=== PATIENT | female | born 2005 | race Caucasian/White ===

== ENCOUNTER 2025-08-10 11:43 | Emergency (ER) | payer OTHER, SELFPAY ==
--- OUTSIDE RECORDS SUMMARY | 2025-08-10 06:12 | XMS RPT_ITS ---
Author Name Auto Generated Organization OH[facility] Care Team Providers Care Bowling Alley Refinisher Name Role Phone SITA MALDONADO Attending Physician Unavail able PROBLEMS DATE TYPE CONDITION / CODE ATTENDING STATUS TOM [facility] 08/10/2025 Active Abdominal pain, right lower quadrant / R10.31(ICD-10) SITA MALDONADO Active [facility] 08/10/2025 Active Irritable bowel syndrome, unspecified type / K58.9(ICD-10) SITA MALDONADO Active [facility] RESULTS PROGRESS Observed: 08/10/2025 11:35 AM Status: COMPLETED Source: [facility] [place] HNO ID: [id number] Author: SITA MALDONADO APRN.BRINE PURIFIER Service: ? Author Type: Nurse Practitioner Type: Progress Notes Filed: 08/10/2025 11:40 Note Text: [facility] Subjective Laly Manzanares is a 20 year old female. Patient presents with: Abdominal Pain: RLQ and RUQ x 1 week aching consistent at times sharp Abdominal Pain The patient is a 20-year-old female with a history of IBS, presenting with right lower quadrant abdominal pain. Right Lower Quadrant Abdominal Pain: - Onset: Approximately one week ago. - Location: Primarily in the RLQ, with some pain around the umbilicus. - Quality: Described as a dull, constant pain with intermittent sharp episodes every few hours. - Denies dysuria, urinary frequency, fever, or chills. - No history of appendectomy. IBS: - Chronic condition with baseline nausea and variable bowel habits. - Denies current exacerbation of usual IBS symptoms, such as increased diarrhea or constipation. - Notes that the current pain is atypical for her usual IBS-related discomfort. LMP was in June, denies being sexually active, has upcoming appointment with OBGYN due to irregular menses. Review of Systems Gastrointestinal: Positive for abdominal pain. Constitutional: (-) fever Gastrointestinal: (+) right lower quadrant abdominal pain, (+) nausea, (-) vomiting, (-) abdominal tenderness Genitourinary: (-) dysuria, (-) urinary frequency Objective BP 121/83 Pulse 77 Temp 36.7 ?C (98 ?F) Resp 20 Wt 61 kg (134 lb 7.7 oz) LMP 05/09/2025 (Approximate) SpO2 99% No past medical history on file. No past surgical history on file. ALLERGIES Patient has no known allergies. MEDICATIONS nortriptyline (PAMELOR) 10 mg capsule Take 20 mg by mouth daily at bedtime. dicyclomine (BENTYL) 10 mg capsule Take 10 mg by mouth as needed (IBS). No family history on file. Social History[1] Physical Exam Vitals and nursing note reviewed. Constitutional: General: She is not in acute distress. Appearance: Normal appearance. She is not ill-appearing. Cardiovascular: Rate and Rhythm: Normal rate and regular rhythm. Heart sounds: Normal heart sounds. Pulmonary: Effort: Pulmonary effort is normal. No respiratory distress. Breath sounds: Normal breath sounds. No wheezing or rales. Abdominal: General: Bowel sounds are normal. There is no distension. Palpations: Abdomen is soft. There is no mass. Tenderness: There is no abdominal tenderness. There is no guarding. Negative signs include McBurney's sign and psoas sign. Skin: General: Skin is warm and dry. Neurological: Mental Status: She is alert. { 1. Abdominal pain, right lower quadrant (R10.31) 2. Irritable bowel syndrome, unspecified type (K58.9) - Ongoing RLQ pain for one week, described as dull and constant with intermittent sharp episodes; no fever, dysuria, or urinary frequency; pain location atypical for patient's usual IBS symptoms. - Physical exam: No significant tenderness on palpation, no pain with hip flexion or heel tap. - Appendicitis remains a concern; unable to rule out in urgent care setting without imaging. - Advised patient to go to the emergency room for further evaluation and imaging (ultrasound or CT scan) to rule out appendicitis. - Educated on risks of delayed diagnosis, including potential for appendix rupture and severe illness; explained that appendicitis can present with mild, intermittent pain before worsening. - Encouraged to seek prompt evaluation in the ER to ensure timely diagnosis and management. - If appendicitis is ruled out and pain persists, advised follow-up with gastroenterology for further evaluation and management of IBS. - Follow-up with your PCP in 3-5 days if symptoms have not improved or sooner if symptoms worsen - Discussed red flags and need for immediate medical evaluation if any occur. - Discussed supportive care treatment with fluids, rest and analgesia. - Discussed expected course of illness Sita Maldonado APRN.BRINE PURIFIER and Recording using [employer] software for draft documentation of the visit was discussed with the patient/authorized branch service representative; all questions welcomed and answered. Patient/authorized branch service representative agreed to proceed Disposition The patient was transferred to ED. Transferred to via private auto due to RLQ pain. Procedures [1] Social History Tobacco Use Smoking status: Never Smokeless tobacco: Never CNOV Observed: 08/10/2025 11:15 AM Status: COMPLETED Source: [facility] Office Visit ([facility]) LALY WILSON ([id number]) 3 F Date Time Provider Department 08/10/25 11:15 AM SITA MALDONADO During your visit today, we recorded the following information about you: Temperature Pulse Respiration Blood pressure 98 degrees 77/minute 20/minute 121/83 Weight Last Period 61 kg 05/09/25 Sita Maldonado APRN.BRINE PURIFIER 08/10/2025 11:40 AM Addendum [facility] Subjective Laly Manzanares is a 20 year old female. Patient presents with: Abdominal Pain: RLQ and RUQ x 1 week aching consistent at times sharp Abdominal Pain The patient is a 20-year-old female with a history of IBS, presenting with right lower quadrant abdominal pain. Right Lower Quadrant Abdominal Pain: - Onset: Approximately one week ago. - Location: Primarily in the RLQ, with some pain around the umbilicus. - Quality: Described as a dull, constant pain with intermittent sharp episodes every few hours. - Denies dysuria, urinary frequency, fever, or chills. - No history of appendectomy. IBS: - Chronic condition with baseline nausea and variable bowel habits. - Denies current exacerbation of usual IBS symptoms, such as increased diarrhea or constipation. - Notes that the current pain is atypical for her usual IBS-related discomfort. LMP was in June, denies being sexually active, has upcoming appointment with OBGYN due to irregular menses. Review of Systems Gastrointestinal: Positive for abdominal pain. Constitutional: (-) fever Gastrointestinal: (+) right lower quadrant abdominal pain, (+) nausea, (-) vomiting, (-) abdominal tenderness Genitourinary: (-) dysuria, (-) urinary frequency Objective BP 121/83 Pulse 77 Temp 36.7 ?C (98 ?F) Resp 20 Wt 61 kg (134 lb 7.7 oz) LMP 05/09/2025 (Approximate) SpO2 99% No past medical history on file. No past surgical history on file. ALLERGIES Patient has no known allergies. MEDICATIONS nortriptyline (PAMELOR) 10 mg capsule Take 20 mg by mouth daily at bedtime. dicyclomine (BENTYL) 10 mg capsule Take 10 mg by mouth as needed (IBS). No family history on file. Social History[1] Physical Exam Vitals and nursing note reviewed. Constitutional: General: She is not in acute distress. Appearance: Normal appearance. She is not ill-appearing. Cardiovascular: Rate and Rhythm: Normal rate and regular rhythm. Heart sounds: Normal heart sounds. Pulmonary: Effort: Pulmonary effort is normal. No respiratory distress. Breath sounds: Normal breath sounds. No wheezing or rales. Abdominal: General: Bowel sounds are normal. There is no distension. Palpations: Abdomen is soft. There is no mass. Tenderness: There is no abdominal tenderness. There is no guarding. Negative signs include McBurney's sign and psoas sign. Skin: General: Skin is warm and dry. Neurological: Mental Status: She is alert. { 1. Abdominal pain, right lower quadrant (R10.31) 2. Irritable bowel syndrome, unspecified type (K58.9) - Ongoing RLQ pain for one week, described as dull and constant with intermittent sharp episodes; no fever, dysuria, or urinary frequency; pain location atypical for patient's usual IBS symptoms. - Physical exam: No significant tenderness on palpation, no pain with hip flexion or heel tap. - Appendicitis remains a concern; unable to rule out in urgent care setting without imaging. - Advised patient to go to the emergency room for further evaluation and imaging (ultrasound or CT scan) to rule out appendicitis. - Educated on risks of delayed diagnosis, including potential for appendix rupture and severe illness; explained that appendicitis can present with mild, intermittent pain before worsening. - Encouraged to seek prompt evaluation in the ER to ensure timely diagnosis and management. - If appendicitis is ruled out and pain persists, advised follow-up with gastroenterology for further evaluation and management of IBS. - Follow-up with your PCP in 3-5 days if symptoms have not improved or sooner if symptoms worsen - Discussed red flags and need for immediate medical evaluation if any occur. - Discussed supportive care treatment with fluids, rest and analgesia. - Discussed expected course of illness Sita Maldonado APRN.BRINE PURIFIER and Recording using [employer] software for draft documentation of the visit was discussed with the patient/authorized branch service representative; all questions welcomed and answered. Patient/authorized branch service representative agreed to proceed Disposition The patient was transferred to ED. Transferred to via private auto due to RLQ pain. Procedures [1] Social History Tobacco Use Smoking status: Never Smokeless tobacco: Never Sita Maldonado APRN.BRINE PURIFIER 08/10/2025 11:39 AM Signed 1. Abdominal pain, right lower quadrant (R10.31) 2. Irritable bowel syndrome, unspecified type (K58.9) - Ongoing RLQ pain for one week, described as dull and constant with intermittent sharp episodes; no fever, dysuria, or urinary frequency; pain location atypical for patient's usual IBS symptoms. - Physical exam: No significant tenderness on palpation, no pain with hip flexion or heel tap. - Appendicitis remains a concern; unable to rule out in urgent care setting without imaging. - Advised patient to go to the emergency room for further evaluation and imaging (ultrasound or CT scan) to rule out appendicitis. - Educated on risks of delayed diagnosis, including potential for appendix rupture and severe illness; explained that appendicitis can present with mild, intermittent pain before worsening. - Encouraged to seek prompt evaluation in the ER to ensure timely diagnosis and management. - If appendicitis is ruled out and pain persists, advised follow-up with gastroenterology for further evaluation and management of IBS. - Go to the emergency department today to have an ultrasound or CT scan to rule out appendicitis. - Watch for fever, chills, increasing or sharp pain, persistent nausea or vomiting; if any of these occur, return to the emergency department or seek urgent care immediately. - If imaging shows no appendicitis but your pain persists, schedule a gastroenterology appointment here to discuss further IBS management. Allergies As of Date: 08/10/2025 (No Known Allergies) Date Reviewed: 08/10/2025 Reviewed by: Migdalia Lockwood LPN - Fully Assessed Reason for Visit: Abdominal Pain [1] Cmt: RLQ and RUQ x 1 week aching consistent at times sharp Visit Diagnoses:Abdominal pain, right lower quadrant [R10.31] Irritable bowel syndrome, unspecified type [K58.9] Prescriptions as of 08/10/2025 - nortriptyline (PAMELOR) 10 mg capsule Take 20 mg by mouth daily at bedtime. - dicyclomine (BENTYL) 10 mg capsule Take 10 mg by mouth as needed (IBS). Problem List As Of Date 08/10/2025 Noted Resolved Abdominal pain, periumbilical [R10.33] 04/07/2014 Irritable bowel syndrome with diarrhea [K58.0] 09/27/2021 Other instructions from your clinician: 1. Abdominal pain, right lower quadrant (R10.31) 2. Irritable bowel syndrome, unspecified type (K58.9) - Ongoing RLQ pain for one week, described as dull and constant with intermittent sharp episodes; no fever, dysuria, or urinary frequency; pain location atypical for patient's usual IBS symptoms. - Physical exam: No significant tenderness on palpation, no pain with hip flexion or heel tap. - Appendicitis remains a concern; unable to rule out in urgent care setting without imaging. - Advised patient to go to the emergency room for further evaluation and imaging (ultrasound or CT scan) to rule out appendicitis. - Educated on risks of delayed diagnosis, including potential for appendix rupture and severe illness; explained that appendicitis can present with mild, intermittent pain before worsening. - Encouraged to seek prompt evaluation in the ER to ensure timely diagnosis and management. - If appendicitis is ruled out and pain persists, advised follow-up with gastroenterology for further evaluation and management of IBS. - Go to the emergency department today to have an ultrasound or CT scan to rule out appendicitis. - Watch for fever, chills, increasing or sharp pain, persistent nausea or vomiting; if any of these occur, return to the emergency department or seek urgent care immediately. - If imaging shows no appendicitis but your pain persists, schedule a gastroenterology appointment here to discuss further IBS management. Disposition: Return if symptoms worsen or fail to improve. Follow-up and Disposition History for Encounter Date Provider Department Center 08/10/2025 [id number] MALDONADO [facility] Encounter Status:Closed by SITA MALDONADO on 08/10/25 ALLERGIES DATE TYPE / CODE NAME / CODE REACTION SEVERITY SOURCE Drug Class/[id number](SNO MED CT) NO KNOWN ALLERGIES [facility] ENCOUNTERS ADMIT/DISCHARGE ACCOUNT NUMBER ADMITTING ENCOUNTER CLASS LOC ATION SOURCE 08/10/2025/ 5 [id number] [facility] PAYERS ENCOUNTER GUARANTOR PAYER SUBSCRIBER SOURCE 08/10/2025 Primary Insuranc e:[facility] COREPolicy Number: [id number] Date:[id number] Name:Antonette MATOSB: [id number] [place] [address] [facility]
[2025-08-10 11:45] VITALS: BP 113/76; PULSE 90; RESP 18; TEMP 37.1; O2SAT 99; BMI 21.2
--- NOTE | 2025-08-10 12:17 | CT_ITS ---
PROCEDURE: ABDOMEN/PELVIS WITH CONTRAST 08/10/2025 REASON FOR EXAM: RLQ PAIN TECHNIQUE: Procedure Code: [id number] Modality: CT Procedure: ABDOMEN/PELVIS WITH CONTRAST Coronal and Sagittal reconstruction series were provided. CONTRAST: Amount of contrast not specified One or more dose reduction techniques were used (e.g., Automated exposure control, adjustment of the mA and/or kV according to patient size, use of iterative reconstruction technique. RADIATION DOSE SUMMARY: CTDlvol: 19 mGy DLP: 335 mGycm FINDINGS: Normal lumbar alignment. Normal vertebral body height. No subluxation. No compression deformity. The stomach is distended with fluid and/or food. Normal appearance of the gallbladder and spleen. Normal appearance of the adrenal glands and kidneys. GI contrast was administered and there is no bowel obstruction. There is no free-fluid or free air. There is no abscess. No colonic diverticulitis or wall thickening. No appendicitis. CT/Abdomen/Pelvis WITH Contrast IMPRESSION: No acute abnormality. Specific attention to the right lower quadrant Reading Location[facility]
--- NOTE | 2025-08-10 12:27 | EX.ED.DYSGE1 ---
HPI History of Present Illness Chief Complaint: Abd Pain Informant: patient Narrative Narrative: 20-year-old female presenting to the emergency room with the chief complaint of right lower quadrant pain. Patient states for the past 7 days she has had pain that started around her bellybutton is moved to the right lower quadrant. She states that urgent care advised her to come to emergency to rule out appendicitis. She denies any fevers. No anorexia vomiting or change in stooling. She does have a history of IBS but states that her stool pattern is consistent and not changed. She denies any rash. She denies any urinary symptoms. She ate eggs at around 0800 hrs. this morning. She does feel that there is a component that radiates slightly towards the flank. [facility] Medical History IBS (irritable bowel syndrome) Allergy/AdvReac Type Severity Reaction Status Date / Time No Known Allergies Allergy Verified 08/10/25 11:54 Social History Smoking Status: Never smoker ROS ROS ED Constitutional Constitutional ED: Denies chills, fever(s) or weight loss Eyes Eyes: Denies change in vision or diplopia ENT ENT ED: Denies ear pain, rhinorrhea or sore throat Cardiovascular Cardiovascular: Denies chest pain, orthopnea, palpitations or racing heartbeat Respiratory/Chest Respiratory/Chest: Denies cough, dyspnea or orthopnea Gastrointestinal Gastrointestinal: Reports abdominal pain and diarrhea; Denies nausea or vomiting Genitourinary Genitourinary ED: Denies dysuria, hematuria or urinary frequency Musculoskeletal Musculoskeletal: Denies arthralgias or myalgias Integumentary Denies abscess or rash Neurologic Neurologic: Denies headache(s) or weakness Psychiatric Psychiatric: Denies anxiety, depression, suicidal ideation or suicidal thoughts Endocrine Endocrinology: Denies polydipsia, polyphagia or polyuria Allergic/Immunologic Allergic/Immunologic ED: Denies mouth swelling, tongue swelling or urticaria EXAM Physical Exam Const Vital Signs: 08/10/25 11:45 08/10/25 13:44 08/10/25 15:00 Temperature 98.8 F Temperature Source Oral Pulse Rate 90 69 Respiratory Rate 18 18 19 H Blood Pressure 113/76 108/80 Blood Pressure Mean 88 89 Pulse Ox 99 99 97 Oxygen Delivery Method Room Air Room Air Room Air 08/10/25 15:01 Temperature 98.8 F Temperature Source Pulse Rate 69 Respiratory Rate 19 H Blood Pressure 108/80 Blood Pressure Mean 89 Pulse Ox 97 Oxygen Delivery Method Positive well nourished and well developed General Appearance ED: well developed HEENT Reports normocephalic, head/scalp atraumatic and moist mucous membranes Eyes PERRL and EOMs intact bilaterally Neck no lymphadenopathy, supple and no JVD Resp normal respiratory effort and clear to auscultation bilaterally Cardio regular rate, regular rhythm and no murmurs GI non-distended and no masses; Negative for hepatosplenomegaly GI Narrative: The abdomen is soft and I would characterize it as nonsurgical. There is normal active bowel sounds. Mild tenderness in the right lower quadrant without guarding or rebound Auscultation: normoactive bowel sounds Palpation: soft and tender RLQ; Negative for guarding or rebound tenderness present Back/Spine no CVA tenderness and normal ROM Extremity normal to inspection General Extremety ED: Negative for edema General Extremity: Negative for edema Neuro oriented x3 and CN's II-XII intact bilaterally Sensorium / Orientation: alert Motor Exam: strength 5/5 throughout Psych mental status grossly normal Mood & Affect: Negative for depressed or tearful Skin no rashes or lesions noted and no wounds MDM MDM MDM Narrative Medical decision making narrative: Differential diagnosis includes but not limited to appendicitis epiploic appendagitis mesenteric adenitis ovarian cyst UTI kidney stone colitis Patient's white count is 6 with no left shift. Stable hemoglobin 14.9. BMP within normal limits. Liver enzymes within normal limits test is negative urinalysis is negative. CT then pelvis with oral and IV contrast was obtained. I do not see any evidence of appendicitis. Please see radiologist read. At this point I think the patient can be discharged home. I do see an abundance of stool in the right side of the colon. Given the patient's IBS I am hesitant to say drink magnesium citrate may exacerbate some diarrhea but this may also help the patient move the stool through. If she notes continued symptoms or worsening symptoms especially the next 2448 hrs. she should return for repeat examination History & Record Review Discussion w/independent historian: Patient Lab Data Attestation: I reviewed the patient's lab results. Labs: Laboratory Results - last 24 hr 08/10/25 08/10/25 08/10/25 13:04 13:04 13:20 WBC Cancelled 6.0 Corrected WBC Cancelled RBC Cancelled 4.70 Hgb Cancelled 14.9 Hct Cancelled 42.9 MCV Cancelled 91.3 MCH Cancelled 31.7 MCHC Cancelled 34.7 RDW Std Deviation Cancelled 40.5 RDW Coeff of Darline Cancelled 12.1 Plt Count Cancelled 227 MPV Cancelled 9.0 Immature Gran % (Auto) Cancelled 0.300 Neut % (Auto) Cancelled 70.0 Lymph % (Auto) Cancelled 18.3 L [place] % (Auto) Cancelled 7.6 Eos % (Auto) Cancelled 3.0 Baso % (Auto) Cancelled 0.8 Absolute Neuts (auto) Cancelled 4.2 Absolute Lymphs (auto) Cancelled 1.09 Total Counted Cancelled Neutrophils % (Manual) Cancelled Band Neutrophils % Cancelled Lymphocytes % (Manual) Cancelled Monocytes % (Manual) Cancelled Eosinophils % (Manual) Cancelled Basophils % (Manual) Cancelled Metamyelocytes % Cancelled Myelocytes % Cancelled Promyelocytes % Cancelled Blast Cells % Cancelled Plasma Cell % (Manual) Cancelled Other Cells % Cancelled Nucleated RBC % Cancelled 0 Nucleated RBCs/100 WBC Cancelled Differential Comment Cancelled Diff Path Review Cancelled Hypersegmented Neuts Cancelled Atypical Lymphocytes Cancelled Reactive Lymphocytes Cancelled Smudge Cells Cancelled Toxic Granulation Cancelled Toxic Vacuolation Cancelled Dohle Bodies Cancelled Raul Rods Cancelled Platelet Estimate Cancelled Plt Morphology Comment Cancelled RBC Morphology Cancelled Cancelled Polychromasia Cancelled Hypochromasia Cancelled Basophilic Stippling Cancelled Anisocytosis Cancelled Microcytosis Cancelled Macrocytosis Cancelled Spherocytes Cancelled Sickle Cells Cancelled Target Cells Cancelled Tear Drop Cells Cancelled Ovalocytes Cancelled Stomatocytes Cancelled [place] Bodies Cancelled [place] Cells Cancelled Bite Cells Cancelled Crenated Cell Cancelled Acanthocytes (Spur) Cancelled Rouleaux Cancelled Schistocytes Cancelled Sodium Cancelled 140 Potassium Cancelled 3.5 Chloride Cancelled 101 Carbon Dioxide Cancelled 27.1 Anion Gap Cancelled 12 BUN Cancelled 9 Creatinine Cancelled 0.68 L Estim Creat Clear Calc Cancelled 131.20 Est GFR (MDRD) Non-Af Cancelled 127 BUN/Creatinine Ratio Cancelled 13.3 Glucose Cancelled 98 Calcium Cancelled 9.5 Total Bilirubin Cancelled 0.60 AST Cancelled 27 ALT Cancelled 27 Alkaline Phosphatase Cancelled 71 Total Protein Cancelled 7.7 Albumin Cancelled 4.6 Globulin Cancelled 3.1 Albumin/Globulin Ratio Cancelled 1.5 Serum , Qual Cancelled NEGATIVE Urine Color Urine Clarity Urine pH Ur Specific [place] Urine Protein Urine Glucose (UA) Urine Ketones Urine Occult Blood Urine Nitrite Urine Bilirubin Urine Urobilinogen Ur Leukocyte Esterase Urine RBC Urine WBC Ur Squamous Epith Cells Urine Bacteria Urine Mucus 08/10/25 13:30 WBC Corrected WBC RBC Hgb Hct MCV MCH MCHC RDW Std Deviation RDW Coeff of Darline Plt Count MPV Immature Gran % (Auto) Neut % (Auto) Lymph % (Auto) [place] % (Auto) Eos % (Auto) Baso % (Auto) Absolute Neuts (auto) Absolute Lymphs (auto) Total Counted Neutrophils % (Manual) Band Neutrophils % Lymphocytes % (Manual) Monocytes % (Manual) Eosinophils % (Manual) Basophils % (Manual) Metamyelocytes % Myelocytes % Promyelocytes % Blast Cells % Plasma Cell % (Manual) Other Cells % Nucleated RBC % Nucleated RBCs/100 WBC Differential Comment Diff Path Review Hypersegmented Neuts Atypical Lymphocytes Reactive Lymphocytes Smudge Cells Toxic Granulation Toxic Vacuolation Dohle Bodies Raul Rods Platelet Estimate Plt Morphology Comment RBC Morphology Polychromasia Hypochromasia Basophilic Stippling Anisocytosis Microcytosis Macrocytosis Spherocytes Sickle Cells Target Cells Tear Drop Cells Ovalocytes Stomatocytes [place] Bodies [place] Cells Bite Cells Crenated Cell Acanthocytes (Spur) Rouleaux Schistocytes Sodium Potassium Chloride Carbon Dioxide Anion Gap BUN Creatinine Estim Creat Clear Calc Est GFR (MDRD) Non-Af BUN/Creatinine Ratio Glucose Calcium Total Bilirubin AST ALT Alkaline Phosphatase Total Protein Albumin Globulin Albumin/Globulin Ratio Serum , Qual Urine Color Yellow Urine Clarity Sl. Cloudy Urine pH 7.0 Ur Specific [place] 1.010 Urine Protein Negative Urine Glucose (UA) Normal Urine Ketones Negative Urine Occult Blood Negative Urine Nitrite Negative Urine Bilirubin Negative Urine Urobilinogen Normal Ur Leukocyte Esterase Negative Urine RBC 0 SEEN Urine WBC 0 SEEN Ur Squamous Epith Cells 0-5 SEEN Urine Bacteria 0 SEEN Urine Mucus 0 SEEN Radiography Diagnostic Testing: Clinical Impression(s) from Imaging Studies Abdomen/Pelvis CT 08/10/25 12:17 IMPRESSION: No acute abnormality. Specific attention to the right lower quadrant Reading Location: [facility] Discharge Plan Triage Chief Complaint: Abd Pain ED Provider: Donell Hastings Dx/Rx/DC Orders Clinical Impression: Abdominal pain Instructions: Abdominal Pain Primary Care Provider: Care Physician,No Primary Referrals: Care Physician,No Primary [Primary Care Provider, Medical] Activity Restrictions/Additional Instructions: As we discussed do not see any evidence of appendicitis at this time. Please monitor your symptoms. If your symptoms are worsening or persistent I would asked that you get a repeat examination either by us or by primary care especially in the next 24 to 48 hours. Print Language: Belarusian Disposition Disposition: Home, Self Care Discharge Date/Time: 08/10/25 15:02
[2025-08-10 13:29] LABS: Hematocrit 42.9 % (37-47); Hemoglobin 14.9 g/dL (12.0-15.0); Immature Granulocytes Count 0.020 X10^3/uL (0.0-0.0); Mean Corp Hgb Conc 34.7 g/dL (32-36); Mean Corpuscular Volume 91.3 fL (81-99); Mean Platelet Vol. 9.0 fl (6.2-12.0); NRBC Flagged by Analyzer 0 % (0-5); Platelet Count 227 K/mm3 (150-450); RBC Distribution Width CV 12.1 % (11.6-14.6); RBC Distribution Width SD 40.5 fl (35.1-43.9); Red Blood Count 4.70 M/mm3 (4.2-5.4); White Blood Count 6.0 K/mm3 (4.4-11.0)
[2025-08-10 13:41] LABS: Internal QC Validated? YES +Cl - CLEAR BKGD; Pregnancy, Serum, hCG Quali. NEGATIVE Negative; Record Kit Lot#, Serum Preg. 980607
[2025-08-10 13:44] VITALS: BP 108/80; RESP 18; O2SAT 99
[2025-08-10 14:00] LABS: Mucous, Urine 0 SEEN /hpf (<or=2+); Red Blood Cells-Urine 0 SEEN /hpf (0-5)
[2025-08-10 14:04] LABS: AST(SGOT) 27 U/L (<=31); Alanine Aminotransfer ALT/SGPT 27 U/L (<=34); Albumin, Serum 4.6 g/dL (3.5-5.0); Alkaline Phosphatase 71 U/L (35-104); Anion Gap 12 (5-15); BUN 9 mg/dL (4-19); BUN/Creat Ratio 13.3 RATIO (10-20); Calcium,Total 9.5 mg/dL (7.6-11.0); Carbon Dioxide 27.1 mmol/L (21.0-32.0); Chloride 101 mmol/L (98-108); Estimated Creatinine Clearance 131.20 ml/min (50-250); Globulin 3.1 g/dL (2.2-4.2); Glucose 98 mg/dL (70-99); Potassium 3.5 mmol/L (3.3-5.1)
[2025-08-10 14:11] LABS: Color, Urine Yellow (Yellow); Glucose, Dipstick Normal (Normal); Ketone-Dipstick Negative (Negative); Leukocyte Esterase-Dipstick Negative /ul (Negative); Nitrite-Dipstick Negative (Negative); Occult Blood-Urine Negative /ul (Negative); Protein-Dipstick Negative (Negative); Specific Gravity, Urine 1.010 (1.002-1.030); Urine Bilirubin Dipstick Negative (Negative)
[2025-08-10 14:30] LABS: Squamous Epithelial Cells - UA 0-5 SEEN /hpf (5-10)
[2025-08-10 15:00] VITALS: PULSE 69; RESP 19; O2SAT 97
[2025-08-10 15:01] VITALS: BP 108/80; PULSE 69; RESP 19; TEMP 37.1; O2SAT 97
== END 2025-08-10 15:02 | disposition home or self-care (01) ==
PROVIDERS: Emergency Provider Emergency Medicine; Visit Provider Emergency Medicine
DX: R10.31 Right lower quadrant pain (principal)
CPT/HCPCS: 74177; 80053; 81001; 84703; 85025; 99283; Q9967